=== PATIENT | male | born 2000 | race Caucasian/White ===

== ENCOUNTER → 2021-01-17 | Outpatient (CLI) | payer BC ==
[2021-01-17 10:51] LABS: BASOPHILS % 0.7 % (0.0-2.0); EOSINOPHILS % 2.9 % (0.0-5.0); HEMATOCRIT. 46.7 % (42.0-52.0); HEMOGLOBIN. 16.5 g/dL (14.0-18.0); MEAN CORPUSCULAR VOLUME 87.7 fL (80.0-94.0); MEAN PLATELET VOLUME 8.9 fl (7.4-10.4); MONOCYTES % 6.5 % (2.0-8.0); NEUTROPHILS % 66.9 % (40.0-76.0); PLATELET 205 x1000/uL (130-400); RED BLOOD CELL COUNT 5.33 mill/uL (4.7-6.1); RED CELL DISTRIBUTION WIDTH 12.7 % (11.6-14.6)
[2021-01-17 10:57] LABS: CHLORIDE 105 mEq/L (98-107)
[2021-01-17 11:00] LABS: AMYLASE 41 IU/L (25-115)
[2021-01-17 11:04] LABS: CLARITY URINE CLEAR (CLEAR); COLOR URINE YELLOW (YELLOW); KETONES URINE NEGATIVE (NEGATIVE); LEUKOCYTE ESTERASE URINE NEGATIVE (NEGATIVE); NITRITE URINE NEGATIVE (NEGATIVE); OCCULT BLOOD URINE NEGATIVE (NEGATIVE); PROTEIN URINE 1+ (NEGATIVE); SPECIFIC GRAVITY URINE 1.027 (1.005-1.030); UROBILINOGEN URINE 0.2 E.U./dL (0.2-1.0)
[2021-01-17 11:05] LABS: HDL CHOLESTEROL 55 mg/dL (40-59); LDL CHOLESTEROL 80 mg/dL (5-100)
[2021-01-17 11:08] LABS: *AMPHETAMINES SCREEN URINE NEGATIVE (NEGATIVE); *BARBITURATES SCREEN URINE NEGATIVE (NEGATIVE); *COCAINE SCREEN URINE NEGATIVE (NEGATIVE)
[2021-01-17 11:09] LABS: *BENZODIAZEPINES SCREEN URINE NEGATIVE (NEGATIVE); CANNABINOID URINE SCREEN PRESUMTIVE POSITIVE (NEGATIVE); METHADONE URINE SCREEN NEGATIVE (NEGATIVE); OPIATES URINE SCREEN NEGATIVE (NEGATIVE); PHENCYCLIDINE URINE SCREEN NEGATIVE (NEGATIVE)
[2021-01-18 04:12] LABS: HIV SCREEN 4G Non Reactive (Non Reactive)
[2021-01-18 07:12] LABS: *CREATININE RANDOM URINE 202.7 mg/dL (Not Estab.); MICROALBUMIN RANDOM URINE 12.5 ug/mL (Not Estab.)
[2021-01-19 04:10] LABS: NEISSERIA GONORRHOEAE NAA Negative (Negative)
== END | disposition home or self-care (01) ==
LOC: LAB 10:15
PROVIDERS: ATTEND Internal Medicine
DX: Z00.01 Encounter for general adult medical examination with abnormal findings (principal); Z11.3 Encounter for screening for infections with a predominantly sexual mode of transmission; R53.83 Other fatigue; R10.9 Unspecified abdominal pain
CPT/HCPCS: 36415; 80053; 80061; 80305; 81003; 82043; 82150; 82306; 82570; 83036; 85025; 86592; 86677; 86695; 86696; 87389; 87491; 87591